=== PATIENT | male | born 1980 | race Caucasian/White ===

== ENCOUNTER 2016-11-03 15:00 | Emergency (ER) | payer OTHER ==
[2016-11-03] MEDS ORDERED: SULFAMETHOXAZOLE/TRIMETHOPRIM 800MG/160MG D.S. TABLET PO ONE (16:15)
[2016-11-03] MEDS ORDERED: IBUPROFEN 600 MG TABLET (FP) PO ONE ×2 (16:15→16:31)
[2016-11-03] MEDS ORDERED: CEPHALEXIN MONOHYDRATE 500 MG CAPSULE (UD) PO ONE (16:16)
--- NOTE | 2016-11-03 16:20 | PDOC ---
History of Present Illness <Renny Larose - Last Filed: 11/03/16 16:14> - History of Present Illness Initial Comments: 11/03/16 16:28 Patient is a 36 year old male with significant medical hx of past MRSA abscess infections, who is presenting to the ED with an abscess to his right buttock cheek for one week. Patient reports he's had two abscesses in the past year but has never had one on his buttock. He's complaining of pain to the area. Social Hx: Denies tobacco use, alcohol use, recreational drug use. The patient is employed, he takes the subway every day and works in a kitchen. <Di Barrientos - Last Filed: 11/03/16 16:34> - General Chief Complaint: Abscess Boil Stated Complaint: ABSCESS Time Seen by Provider: 11/03/16 15:24 Past History - Past Medical History Anemia: No Asthma: No Cancer: No Cardiac Disorders: No CVA: No COPD: No CHF: No Dementia: No Diabetes: No GI Disorders: No Disorders: No HTN: No Liver Disease: No Seizures: No Thyroid Disease: No - Surgical History Abdominal Surgery: No Appendectomy: Yes Cardiac Surgery: No Cholecystectomy: No Lung Surgery: No Neurologic Surgery: No Orthopedic Surgery: No - Psycho/Social/Smoking Cessation Hx Anxiety: No Suicidal Ideation: No Smoking History: Never smoked Have you smoked in the past 12 months: Yes Number of Cigarettes Smoked Daily: 3 'Breaking Loose' booklet given: 06/26/16 Hx Alcohol Use: No Drug/Substance Use Hx: No Substance Use Type: None Hx Substance Use Treatment: No <Renny Larose - Last Filed: 11/03/16 16:14> <Di Barrientos - Last Filed: 11/03/16 16:34> - Past Medical History Allergies/Adverse Reactions: Allergies Allergy/AdvReac Type Severity Reaction Status Date / Time shellfish derived Allergy Verified 11/03/16 15:40 Home Medications: Ambulatory Orders Oxycodone HCl [Roxicodone -] 5 mg PO Q4H PRN #20 tablet MDD 6 06/29/16 Cephalexin Monohydrate [Keflex -] 500 mg PO Q8H #20 capsule 11/03/16 Sulfamethoxazole/Trimethoprim [Bactrim Ds -] 1 tab PO BID 11/03/16 Sulfamethoxazole/Trimethoprim [Bactrim Ds -] 1 tab PO BID #14 tablet 11/03/16 Review of Systems - Review of Systems Comments:: 11/03/16 16:32 CONSTITUTIONAL: Absent: fever, chills, diaphoresis, generalized weakness, malaise, loss of appetite HEENT: Absent: rhinorrhea, nasal congestion, throat pain, throat swelling, difficulty swallowing, mouth swelling, ear pain, eye pain, visual changes CARDIOVASCULAR: Absent: chest pain, syncope, palpitations, irregular heart rate, lightheadedness , peripheral edema RESPIRATORY: Absent: cough, shortness of breath, dyspnea with exertion, orthopnea, wheezing, stridor, hemoptysis GASTROINTESTINAL: Absent: abdominal pain, abdominal distension, nausea, vomiting, diarrhea, constipation, melena, hematochezia GENITOURINARY: Absent: dysuria, frequency, urgency, hesitancy, hematuria, flank pain, genital pain MUSCULOSKELETAL: Absent: myalgia, arthralgia, joint swelling SKIN: Present: abscess to right buttock Absent: rash, itching, pallor HEMATOLOGIC/IMMUNOLOGIC: Absent: easy bleeding, easy bruising, lymphadenopathy, frequent infections ENDOCRINE: Absent: unexplained weight gain, unexplained weight loss, heat intolerance, cold intolerance NEUROLOGIC: Absent: headache, focal weakness or paresthesia, dizziness, unsteady gait, seizure, mental status changes, bladder or bowel incontinence. PSYCHIATRIC: Absent: anxiety, depression, suicidal or homicidal ideation, hallucinations <Di Barrientos - Last Filed: 11/03/16 16:34> *Physical Exam - Physical Exam Comments: 11/03/16 16:33 GENERAL: Well developed, well nourished. Awake and alert. No acute distress. HEENT: Normocephalic, atraumatic. PERRLA, EOMI. No conjunctival pallor. Sclera are non- icteric. Moist mucous membranes. Oropharynx is clear. NECK: Supple. Full ROM. No JVD. Carotid pulses 2+ and symmetric, without bruits. No thyromegaly. No lymphadenopathy. CARDIOVASCULAR: Regular rate and rhythm. No murmurs, rubs, or gallops. Distal pulses are 2+ and symmetric. PULMONARY: No evidence of respiratory distress. Lungs clear to auscultation bilaterally. No wheezing, rales or rhonchi. ABDOMINAL: Soft. Non-tender. Non-distended. No rebound or guarding. No organomegaly. Normoactive bowel sounds. MUSCULOSKELETAL: Normal range of motion at all joints. No bony deformities or tenderness. No CVA tenderness. EXTREMITIES: No cyanosis. No clubbing. No edema. No calf tenderness. SKIN: 3cm diameter abscess to the aspect of the right gluteal area. Warm and dry. Normal capillary refill. No rashes. No jaundice. NEUROLOGICAL: Alert, awake, appropriate. Cranial nerves 2-12 intact. Normal speech. Gait is normal without ataxia. PSYCHIATRIC: Cooperative. Good eye contact. Appropriate mood and affect. <Di Barrientos - Last Filed: 11/03/16 16:34> *DC/Admit/Observation/Transfer - Discharge Dispostion Admit: No <Renny Larose - Last Filed: 11/03/16 16:14> - Attestations Scribe Attestion: 11/03/16 16:34 Documentation prepared by Di Barrientos, acting as medical review specialist for Renny Larose MD. <Di Barrientos - Last Filed: 11/03/16 16:34> Diagnosis at time of Disposition: Abscess of gluteal region - Discharge Dispostion Condition at time of disposition: Stable - Prescriptions Prescriptions: Sulfamethoxazole/Trimethoprim [Bactrim Ds -] 1 tab PO BID #14 tablet Cephalexin Monohydrate [Keflex -] 500 mg PO Q8H #20 capsule - Referrals Referrals: Vicente Willis MD [Staff Physician] - - Patient Instructions Printed Discharge Instructions: DI for Anal Abscess
[2016-11-03] MEDS ORDERED: SULFAMETHOXAZOLE/TRIMETHOPRIM 800MG/160MG D.S. TABLET ONE (16:30)
[2016-11-03] MEDS ORDERED: CEPHALEXIN MONOHYDRATE 500 MG CAPSULE (UD) ONE (16:32)
[2016-11-03 16:42] VITALS: BP 108/67; PULSE 82; TEMP 97.8; BMI 22.2
== END 2016-11-03 16:48 | disposition home or self-care (01) ==
LOC: FER 15:00
DX: L02.31 Cutaneous abscess of buttock (principal); Z87.891 Personal history of nicotine dependence
CPT/HCPCS: 99282-25

== ENCOUNTER 2016-11-04 08:42 | Emergency (ER) | payer OTHER ==
[2016-11-04 08:53] VITALS: BP 129/80; PULSE 69; TEMP 97.4; BMI 23.6
[2016-11-04] MEDS ORDERED: OXYCODONE/APAP 5/325MG COMBO TABLET PO ONE (09:55)
[2016-11-04] MEDS ORDERED: OXYCODONE/APAP 5/325MG COMBO TABLET ONE (09:57)
--- NOTE | 2016-11-04 10:00 | PDOC ---
History of Present Illness - General Chief Complaint: Abscess Boil Stated Complaint: CIST ON LOWER BACK SIDE Time Seen by Provider: 11/04/16 09:47 History Source: Patient Exam Limitations: No Limitations - History of Present Illness Initial Comments: 11/04/16 19:07 Chief complaint: Abscess right inner buttocks History of present illness: Patient is a 36-year-old male with a history of MRSA here today with an abscess to his right inner buttocks that has gotten worse over the last few few days. Patient reports that he was seen yesterday at [facility] and was given antibiotics and was told that it was not ready to be drained. Pt. reports pain is currently a 10 out of 10. Pt. has been afebrile. Pt. reports that this is the 3rd time that he has had MRSA. Timing/Duration: getting worse Severity: moderate (rt. medial buttock getting worse ) Associated Symptoms: reports: denies symptoms Past History - Past Medical History Allergies/Adverse Reactions: Allergies Allergy/AdvReac Type Severity Reaction Status Date / Time shellfish derived Allergy Verified 11/04/16 08:47 Home Medications: Ambulatory Orders Cephalexin Monohydrate [Keflex -] 500 mg PO Q8H #20 capsule 11/03/16 Sulfamethoxazole/Trimethoprim [Bactrim Ds -] 1 tab PO BID #14 tablet 11/03/16 Oxycodone HCl/Acetaminophen [Percocet 5-325 mg Tablet] 1 - 2 tab PO Q6H PRN #20 tab MDD 8 tabs 11/04/16 Anemia: No Asthma: No Cancer: No Cardiac Disorders: No CVA: No COPD: No CHF: No Dementia: No Diabetes: No GI Disorders: No Disorders: No HTN: No Liver Disease: No Seizures: No Thyroid Disease: No Other medical history: NONE - Surgical History Abdominal Surgery: No Appendectomy: Yes Cardiac Surgery: No Cholecystectomy: No Lung Surgery: No Neurologic Surgery: No Orthopedic Surgery: No - Psycho/Social/Smoking Cessation Hx Anxiety: No Suicidal Ideation: No Smoking History: Current every day smoker Have you smoked in the past 12 months: Yes Number of Cigarettes Smoked Daily: 1 Information on smoking cessation initiated: Yes 'Breaking Loose' booklet given: 11/04/16 Hx Alcohol Use: No Drug/Substance Use Hx: No Substance Use Type: None Hx Substance Use Treatment: No Review of Systems - Review of Systems Able to Perform ROS?: Yes Constitutional: No: Symptoms Reported HEENTM: No: Symptoms Reported Respiratory: No: Symptoms reported Cardiac (ROS): No: Symptoms Reported ABD/GI: No: Symptoms Reported : No: Symptoms Reported Musculoskeletal: No: Symptoms Reported Integumentary: Yes: Other (abscess rt. medial buttock getting worse) *Physical Exam - Vital Signs Last Vital Signs Temp Pulse Resp BP Pulse Ox 97.4 F L 69 18 129/80 100 11/04/16 08:48 11/04/16 08:48 11/04/16 08:48 11/04/16 08:48 11/04/16 08:48 - Physical Exam General Appearance: Yes: Appropriately Dressed Integumentary: positive: Other (abscess rt. medial buttock started to daquan large amount of grayish discharge when gently touched approx 4 cm diameter) Medical Decision Making - Medical Decision Making 11/04/16 19:12 Patient is a 36-year-old male with a history of MRSA here today with an abscess to his right inner buttocks that has gotten worse over the last few few days. Patient reports that he was seen yesterday at [facility] and was given antibiotics and was told that it was not ready to be drained. Pt. reports pain is currently a 10 out of 10. Pt. has been afebrile. Pt. reports that this is the 3rd time that he has had MRSA. Pt. to be transferred to main ED Dr. Schaefer is aware and charge nurse Lisette Draining abscess rt. medial buttock 11/04/16 19:12 PLAN: percocet [id number] mg po now wound C & S *DC/Admit/Observation/Transfer Diagnosis at time of Disposition: Abscess of gluteal region - Discharge Dispostion Disposition: HOME Condition at time of disposition: Improved - Prescriptions Prescriptions: Oxycodone HCl/Acetaminophen [Percocet 5-325 mg Tablet] 1 - 2 tab PO Q6H PRN #20 tab MDD 8 tabs PRN Reason: Severe Pain - Referrals Referrals: Davidson Lau MD [Staff Physician] - Vinay Jessica MD [Staff Physician] - Arsalan Champagne MD [Primary Care Provider] - - Patient Instructions Printed Discharge Instructions: DI for Incision and Drainage of a Skin Abscess Additional Instructions: SITZ BATHS WITH WARM SALT WATER TWICE PER DAY. DRESS WITH DRY GAUZE. FOLLOW UP WITH INFECTIOUS DISEASE WELL SURGERY. Dr. Lau, general surgery- call [phone] to schedule appointment.
--- NOTE | 2016-11-04 10:27 | PDOC ---
History of Present Illness - General History Source: Patient Exam Limitations: No Limitations - History of Present Illness Initial Comments: 11/04/16 11:27 The patient is a 36-year-old male with a significant past medical history of past MRSA abscess infections, and presents to the emergency department with an abscess to his right buttock cheek for a week. The patient reports he has had two previous cases of MRSA abscesses within the last 5 months. The patient states he was seen at [place] yesterday but the abscess was deemed too ripe to be drained. The patient states he moved around enough yesterday and the skin of the abscess loosened. He believes it has been punctured already. He reports pain in the area. He reports regular bowel movements. The patient denies chest pain, shortness of breath, headache and dizziness. The patient denies fever, chills, nausea, vomit, diarrhea and constipation. Allergies: shellfish Social History: Current everyday smoker PCP: Dr. Arsalan Champagne <Lily Diaz - Last Filed: 11/04/16 11:27> <Alicia Schaefer - Last Filed: 11/04/16 18:06> - General Chief Complaint: Abscess Boil Stated Complaint: CIST ON LOWER BACK SIDE Time Seen by Provider: 11/04/16 09:47 Past History <Lily Diaz - Last Filed: 11/04/16 11:27> - Past Medical History Anemia: No Asthma: No Cancer: No Cardiac Disorders: No CVA: No COPD: No CHF: No Dementia: No Diabetes: No GI Disorders: No Disorders: No HTN: No Liver Disease: No Seizures: No Thyroid Disease: No Other medical history: NONE - Surgical History Abdominal Surgery: No Appendectomy: Yes Cardiac Surgery: No Cholecystectomy: No Lung Surgery: No Neurologic Surgery: No Orthopedic Surgery: No - Psycho/Social/Smoking Cessation Hx Anxiety: No Suicidal Ideation: No Smoking History: Current every day smoker Have you smoked in the past 12 months: Yes Number of Cigarettes Smoked Daily: 1 Information on smoking cessation initiated: Yes 'Breaking Loose' booklet given: 11/04/16 Hx Alcohol Use: No Drug/Substance Use Hx: No Substance Use Type: None Hx Substance Use Treatment: No <Alicia Schaefer - Last Filed: 11/04/16 18:06> - Past Medical History Allergies/Adverse Reactions: Allergies Allergy/AdvReac Type Severity Reaction Status Date / Time shellfish derived Allergy Verified 11/04/16 08:47 Home Medications: Ambulatory Orders Cephalexin Monohydrate [Keflex -] 500 mg PO Q8H #20 capsule 11/03/16 Sulfamethoxazole/Trimethoprim [Bactrim Ds -] 1 tab PO BID #14 tablet 11/03/16 Oxycodone HCl/Acetaminophen [Percocet 5-325 mg Tablet] 1 - 2 tab PO Q6H PRN #20 tab MDD 8 tabs 11/04/16 Review of Systems - Review of Systems Able to Perform ROS?: Yes Comments:: 11/04/16 11:27 GENERAL/CONSTITUTIONAL: No fever or chills. No weakness. HEAD, EYES, EARS, NOSE AND THROAT: No change in vision. No ear pain or discharge. No sore throat. CARDIOVASCULAR: No chest pain or shortness of breath. RESPIRATORY: No cough, wheezing, or hemoptysis. GASTROINTESTINAL: No nausea, vomiting, diarrhea or constipation. GENITOURINARY: No dysuria, frequency, or change in urination. MUSCULOSKELETAL: No joint or muscle swelling or pain. No neck or back pain. SKIN: (+) Abscess to the right buttock. No rash NEUROLOGIC: No headache, vertigo, loss of consciousness, or change in strength/ sensation. <Lily Diaz - Last Filed: 11/04/16 11:27> *Physical Exam - Vital Signs Last Vital Signs Temp Pulse Resp BP Pulse Ox 97.4 F L 69 18 129/80 100 11/04/16 08:48 11/04/16 08:48 11/04/16 08:48 11/04/16 08:48 11/04/16 08:48 <Lily Diaz - Last Filed: 11/04/16 11:27> - Vital Signs Last Vital Signs Temp Pulse Resp BP Pulse Ox 97.4 F L 69 18 129/80 100 11/04/16 08:48 11/04/16 08:48 11/04/16 08:48 11/04/16 08:48 11/04/16 08:48 - Physical Exam Comments: GENERAL: Awake, alert, and fully oriented, in no acute distress HEAD: No signs of trauma ABDOMEN: Soft, nontender, normoactive bowel sounds. No guarding, no rebound. No masses EXTREMITIES: Normal range of motion, no edema. No clubbing or cyanosis. No cords, erythema, or tenderness NEUROLOGICAL: Cranial nerves II through XII grossly intact. Normal speech, normal gait SKIN: Warm, Dry, normal turgor. +Fluctuant, indurated, tender area to R buttock , actively draining purulent fluid. <Alicia Schaefer - Last Filed: 11/04/16 18:06> Procedures - Incision and Drainage I&D Site: Right: Buttock Blade Size: 11 Progress: 11/04/16 11:05 Wound was initially draining spontaneously. Attempted to drain it, however, too painful. Will give patient dilaudid for pain, then attempt a second time. If still unsuccessful may require conscious sedation. 11/04/16 13:42 Second attempt made after dilaudid IV. Patient tolerated this time. I was able to inject locally with lidocaine, then express the purulent material. Patient reports improvement in pain. <Alicia Schaefer - Last Filed: 11/04/16 18:06> ED Treatment Course - Medications Given in the ED: ED Medications Discontinued Medications Generic Name Dose Route Start Last Admin Trade Name Freq PRN Reason Stop Dose Admin Hydromorphone HCl 1 mg 11/04/16 11:00 11/04/16 11:26 Dilaudid Injection - IVPUSH 11/04/16 11:01 1 mg ONCE ONE Administration Oxycodone/Acetaminophen 1 combo 11/04/16 09:55 11/04/16 10:05 Percocet 5/325 - PO 11/04/16 09:56 1 combo ONCE ONE Administration <Lily Diaz - Last Filed: 11/04/16 11:27> - Medications Given in the ED: ED Medications Discontinued Medications Generic Name Dose Route Start Last Admin Trade Name Freq PRN Reason Stop Dose Admin Oxycodone/Acetaminophen 1 combo 11/04/16 09:55 11/04/16 10:05 Percocet 5/325 - PO 11/04/16 09:56 1 combo ONCE ONE Administration <Alicia Schaefer - Last Filed: 11/04/16 18:06> Medical Decision Making - Medical Decision Making After second attempt, was able to express the purulent material. I was able to incise with #11 blade. The abscess pocket was approximately 2.5 cm in diameter. Recommended outpatient surgical followup, as the abscess may recur in that location. <Alicia Schaefer - Last Filed: 11/04/16 18:06> *DC/Admit/Observation/Transfer - Attestations Scribe Attestion: 11/04/16 11:28 Documentation prepared by Lily Diaz, acting as medical education manager for Alicia Schaefer MD. <Lily Diaz - Last Filed: 11/04/16 11:27> - Discharge Dispostion Admit: No <Alicia Schaefer - Last Filed: 11/04/16 18:06> Diagnosis at time of Disposition: Abscess of gluteal region - Discharge Dispostion Disposition: HOME Condition at time of disposition: Improved - Prescriptions Prescriptions: Oxycodone HCl/Acetaminophen [Percocet 5-325 mg Tablet] 1 - 2 tab PO Q6H PRN #20 tab MDD 8 tabs PRN Reason: Severe Pain - Referrals Referrals: Davidson Lau MD [Staff Physician] - Vinay Jessica MD [Staff Physician] - Arsalan Champagne MD [Primary Care Provider] - - Patient Instructions Printed Discharge Instructions: DI for Incision and Drainage of a Skin Abscess Additional Instructions: SITZ BATHS WITH WARM SALT WATER TWICE PER DAY. DRESS WITH DRY GAUZE. FOLLOW UP WITH INFECTIOUS DISEASE WELL SURGERY. Dr. Lau, general surgery- call [phone] to schedule appointment.
[2016-11-04] MEDS ORDERED: HYDROmorphone HCL CARPU-JECT 1 MG/1 ML DISP.SYRIN IVPUSH ONE (11:00)
[2016-11-04] MEDS ORDERED: SODIUM CHLORIDE 1,000 ML IV STA (11:00)
[2016-11-04] MEDS ORDERED: HYDROmorphone HCL CARPU-JECT 1 MG/1 ML DISP.SYRIN ONE (11:21)
== END 2016-11-04 13:50 | disposition home or self-care (01) ==
LOC: JERFT 08:42 → JER 08:42
PROC: 0H98XZZ Drainage of Buttock Skin, External Approach (ICD-10-PCS; principal; 2016-11-04)
PROC: 3E033NZ Introduction of Analgesics, Hypnotics, Sedatives into Peripheral Vein, Percutaneous Approach (ICD-10-PCS; 2016-11-04)
PROC: 3E0337Z Introduction of Electrolytic and Water Balance Substance into Peripheral Vein, Percutaneous Approach (ICD-10-PCS; 2016-11-04)
DX: L02.31 Cutaneous abscess of buttock (principal); F17.210 Nicotine dependence, cigarettes, uncomplicated; Z86.14 Personal history of Methicillin resistant Staphylococcus aureus infection
CPT/HCPCS: 87070; 87186; 87205; 99282-25

== ENCOUNTER 2019-12-16 19:59 | Emergency (ER) | payer BC, OTHER ==
[2019-12-16 20:15] VITALS: BP 124/84; PULSE 92; TEMP 97.9; BMI 25.7
[2019-12-16] MEDS ORDERED: KETOROLAC TROMETHAMINE 60 MG/2 ML VIAL IM ONE (20:20)
[2019-12-16] MEDS ORDERED: predniSONE 20 MG TABLET (UD) PO ONE (20:21)
[2019-12-16] MEDS ORDERED: KETOROLAC TROMETHAMINE 60 MG/2 ML VIAL ONE (20:21)
[2019-12-16] MEDS ORDERED: predniSONE 20 MG TABLET (UD) ONE (20:21)
--- NOTE | 2019-12-16 21:19 | PDOC ---
Documentation entered by Bebo Cruz SCRIBE, acting as scribe for Jocelin Orellana MD. Jocelin Orellana MD: This documentation has been prepared by the Anthony martinez Xhesika, SCRIBE, under my direction and personally reviewed by me in its entirety. I confirm that the documentation accurately reflects all work, treatment, procedures, and medical decision making performed by me. History of Present Illness - General Chief Complaint: Pain, Acute Stated Complaint: LOW BACK PAIN Time Seen by Provider: 12/16/19 20:10 History Source: Patient Exam Limitations: No Limitations - History of Present Illness Initial Comments: 12/16/19 20:26 Assessment and plan: This is a 39-year-old male with history of sciatica who this afternoon while getting ready to go to work bent over to tie his shoes and had acute onset of pain radiating to bilateral buttocks and was unable to straighten up. Patient said this is similar to his sciatica pain in the past. Patient came in for evaluation but did not take any medication prior to coming in. Patient was given Toradol and prednisone and prescriptions for naproxen and Flexeril sent to his pharmacy Patient given a note for no work for a couple of days and referred to Ortho 12/16/19 20:28 The patient is a 39 y/o male with a PMH of chronic lower back pain and sciatica who presents to the ED for lower back pain 2hrs [employer]. Pt states he was getting ready to go to work, bent over to tie his shoes and was unable to get up for 5 minutes. Pt states his pain is similar to his ast sciatica pain. Pt denies taking any pain medications. PAST MEDICAL HISTORY: chronic lower back pain and sciatica PAST SURGICAL HISTORY: no significant history FAMILY HISTORY: no pertinent history SOCIAL HISTORY: Pt lives with family and is employed. MEDICATIONS: reviewed ALLERGIES: As per nursing notes Past History - Past Medical History Allergies/Adverse Reactions: Allergies Allergy/AdvReac Type Severity Reaction Status Date / Time shellfish derived Allergy Verified 12/16/19 20:01 Home Medications: Ambulatory Orders Cyclobenzaprine HCl [Flexeril -] 10 mg PO HS #14 tablet 12/16/19 Naproxen 500 mg PO BID #28 tablet 03/02/20 Sertraline HCl [Zoloft] 25 mg PO DAILY 12/16/19 Anemia: No Asthma: No Cancer: No Cardiac Disorders: No CVA: No COPD: No CHF: No Dementia: No Diabetes: No GI Disorders: No Disorders: No HTN: No Liver Disease: No Seizures: No Thyroid Disease: No Other medical history: BACK PAIN - Surgical History Abdominal Surgery: No Appendectomy: Yes Cardiac Surgery: No Cholecystectomy: No Lung Surgery: No Neurologic Surgery: No Orthopedic Surgery: No - Psycho Social/Smoking Cessation Hx Smoking History: Current every day smoker Have you smoked in the past 12 months: Yes Number of Cigarettes Smoked Daily: 10 Information on smoking cessation initiated: Yes 'Breaking Loose' booklet given: 11/04/16 Hx Alcohol Use: Yes (OCCAS) Drug/Substance Use Hx: Yes (WEED) Substance Use Type: None Hx Substance Use Treatment: No Trauma Specific PMHX - Complaint Specific PMHX Back Injury: No Neck Injury: No Review of Systems - Review of Systems Comments:: 12/16/19 20:29 General: No fevers or chills, no weakness, no weight loss HEENT: No change in vision. No sore throat,. No ear pain CardioVascular: No chest pain or shortness of breath Respiratory:No cough, or wheezing. Gastrointestinal: no nausea, vomiting, diarrhea or constipation, No rectal bleeding Genitourinary: No dysuria, hematuria, or frequency Musculoskeletal: +lower back pain. No joint or muscle swelling Neurologic: No headache, vertigo, dizziness or loss of consciousness Psychiatric: nor depression Skin: No rashes or easy bruising Endocrine: no increased thirst or abnormal weight change Allergic: no skin or latex allergy All other systems reviewed and normal *Physical Exam - Vital Signs Last Vital Signs Temp Pulse Resp BP Pulse Ox 97.9 F 92 H 18 124/84 100 12/16/19 20:05 12/16/19 20:05 12/16/19 20:05 12/16/19 20:05 12/16/19 20:05 - Physical Exam 12/16/19 20:30 GENERAL: The patient is awake, alert, and fully oriented, in no acute distress. HEAD: Normal with no signs of trauma. EYES: Pupils equal, round and reactive to light, extraocular movements intact, sclera anicteric, conjunctiva clear. EXTREMITIES: +TTP of sciatic notch bilaterally. +TTP of lumbar spine at L5 area with paraspinal spasm bilaterally. positive straight leg raises on L leg. NEUROLOGICAL: Normal speech PSYCH: Normal mood, normal affect. SKIN: Warm, Dry, normal turgor, no rashes or lesions noted. Discharge - Discharge Information Problems reviewed: Yes Clinical Impression/Diagnosis: Sciatica Condition: Stable Disposition: HOME - Admission No - Additional Discharge Information Prescriptions: Cyclobenzaprine HCl [Flexeril -] 10 mg PO HS #14 tablet Naproxen 500 mg PO BID #28 tablet - Follow up/Referral Referrals: Davidson Zurita MD [Staff Physician] - - Patient Discharge Instructions Additional Instructions: Get the prescription filled for naproxen and take 1 tablet twice a day with food do not take on an empty stomach Take the muscle relaxer before going to bed. Follow-up with the orthopedist. Return to the emergency department immediately with ANY new, persistent or worsening symptoms. Continue any medications as previously prescribed by your physician. You should follow up with your primary doctor as soon as possible regarding today's emergency department visit. . Please make sure your doctor reviews the results of your emergency evaluation. Thank you for coming to the Emergency Department today for your care. It was a pleasure to see you today. Please note that your evaluation is INCOMPLETE until you follow-up with your doctor. - Post Discharge Activity Work/Back to School Note: Back to Work
== END 2019-12-16 20:34 | disposition home or self-care (01) ==
LOC: FER 19:59
PROC: 3E0233Z Introduction of Anti-inflammatory into Muscle, Percutaneous Approach (ICD-10-PCS; principal; 2019-12-16)
DX: M54.40 Lumbago with sciatica, unspecified side (principal); G89.29 Other chronic pain
CPT/HCPCS: 99284-25